=== PATIENT | male | born 1985 | race Two or more races ===

== ENCOUNTER 2017-11-24 19:07 | Emergency (ER) | payer OTHER ==
[2017-11-24 19:24] VITALS: BP 141/87; PULSE 89; RESP 16; TEMP 97.9; O2SAT 96
[2017-11-24] MEDS ORDERED: DIAZEPAM 5 MG PREPACK#4 BTL TAKEHOME ONE (19:29)
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
== END 2017-11-24 19:50 | disposition home or self-care (01) ==
LOC: CED 19:07
DX: S16.1XXA Strain of muscle, fascia and tendon at neck level, initial encounter (principal); S29.9XXA Unspecified injury of thorax, initial encounter; F17.200 Nicotine dependence, unspecified, uncomplicated; V49.60XA Unspecified car occupant injured in collision with unspecified motor vehicles in traffic accident, initial encounter; Y92.410 Unspecified street and highway as the place of occurrence of the external cause